=== PATIENT | female | born 2005 | race Caucasian/White ===

== ENCOUNTER 2024-02-22 21:26 | Emergency (ER) | payer BC, MEDICAID ==
[~2024-02-22] VITALS: Ht 154.9 cm; Wt 86.2 kg
[2024-02-22] MEDS: IV NORMAL SALINE 500 ML BAG IV ONE (21:54)
[2024-02-22] MEDS ORDERED: ONDANSETRON 4 MG/2 ML VIAL ONE (21:59)
[2024-02-22 22:01] LABS: BASOPHILS # (AUTO) 0.1 K/UL (0.0-0.2); BASOPHILS % (AUTO) 0.6 % (0.0-2.0); EOSINOPHILS # (AUTO) 0.2 K/uL (0.0-0.7); EOSINOPHILS % (AUTO) 1.8 % (0.0-7.0); HEMOGLOBIN 14.5 g/dL (10.9-14.3); LYMPHOCYTES # (AUTO) 3.9 K/uL (0.8-4.8); LYMPHOCYTES % (AUTO) 41.4 % (20.5-74.5); MEAN CORPUSCULAR HEMOGLOBIN 31.5 uug (24.7-32.8); MEAN CORPUSCULAR HGB CONC 34 g/dL (32.3-35.6); MEAN CORPUSCULAR VOLUME 93.2 fL (75.5-95.3); MONOCYTES % (AUTO) 10.1 % (0-11); NEUTROPHILS # (AUTO) 4.4 K/uL (1.8-8.9); NEUTROPHILS % (AUTO) 46.1 % (31.5-64.5); PLATELET COUNT (AUTO) 328 K/uL (179-408); RED BLOOD CELL COUNT(AUTO) 4.61 MIL/uL (3.63-4.92); RED CELL DISTRIBUTION WIDTH 13.2 % (12.3-17.7); WHITE BLOOD COUNT (AUTO) 9.5 K/uL (3.8-11.8)
[2024-02-22 22:03] LABS: DIFFERENTIAL COMMENT 1
[2024-02-22] MEDS: ONDANSETRON 4 MG/2 ML VIAL IV ONE (22:04)
[2024-02-22 22:15] LABS: ETHANOL 281 MG/DL (0-10)
[2024-02-22 22:19] LABS: CALCIUM 9.2 mg/dL (8.5-10.1); CARBON DIOXIDE 20 mmol/L (21-32); CHLORIDE 110 mmol/L (98-107); CREATININE 0.6 mg/dL (0.6-1.3); GLUCOSE 108 mg/dL (74-106); SODIUM SERUM 148 mmol/L (136-145); UREA NITROGEN, BLOOD 6 mg/dL (7-18)
[2024-02-22 22:25] LABS: ALANINE AMINOTRANSFERASE 132 U/L (14-59); ALBUMIN 3.8 g/dL (3.4-5.0); ALKALINE PHOSPHATASE 108 U/L (50-136); ASPARTATE AMINOTRANSFERASE 90 U/L (15-37); BILIRUBIN,DIRECT 0.2 mg/dL (0.0-0.2); BILIRUBIN,TOTAL 0.3 mg/dL (0.2-1.0); TOTAL PROTEIN, SERUM 8.2 g/dL (6.4-8.2)
[2024-02-22 22:28] LABS: ACETAMINOPHEN < 2.0 ug/mL (10-30)
[2024-02-22] MEDS: POTASSIUM CHLORIDE 50 ML IV SCH (22:35)
[2024-02-22 22:39] LABS: LACTIC ACID 3.2 mmol/L (0.4-2.0)
[2024-02-22] MEDS ORDERED: POTASSIUM CHLORIDE 100 ML ONE (22:42)
[2024-02-22 23:33] LABS: *BILIRUBIN,URIN NEGATIVE (NEGATIVE); *CLARITY,URINE CLEAR (CLEAR); *COLOR,URINE YELLOW (YELLOW); *KETONES,URINE 1+ (NEGATIVE); *PROTEIN,URINE 1+ (NEGATIVE); *UROBILINOGEN,URINE 0.2 E.U./dl (NORMAL); LEUKOCYTE ESTERASE ,URINE 3+ (NEGATIVE); NITRITE, URINE POSITIVE (NEGATIVE); UGLUCOSE NEGATIVE (NEGATIVE)
[2024-02-22 23:35] LABS: *BLOOD, URINE TRACE (NEGATIVE)
[2024-02-22 23:48] LABS: *AMPHETAMINE, URINE NEGATIVE (NEGATIVE); *BARBITURATE, URINE NEGATIVE (NEGATIVE); *BENZODIAZEPINE, URINE NEGATIVE (NEGATIVE); *CANNABINOID, URINE POSITIVE (NEGATIVE); *COCCAINE, URINE NEGATIVE (NEGATIVE); *OPIATE, URINE NEGATIVE (NEGATIVE); *PHENCYCLIDINE SCREEN,URINE NEGATIVE (NEGATIVE); FENTANYL, URINE NEGATIVE (NEGATIVE)
[2024-02-22 23:50] LABS: BACTERIA,URINE MODERATE /HPF (NONE SEEN); SQUAMOUS EPITHELIAL CELL,UR MODERATE /HPF (NONE SEEN)
[2024-02-22 23:51] LABS: MUCUS,URINE FEW /LPF (0-FEW)
[2024-02-22 23:52] LABS: *URINE HCG, QUAL NEGATIVE (NEGATIVE)
[2024-02-23] MEDS ORDERED: ONDA4TAB5 PO (00:30)
[2024-02-23] MEDS: IV NORMAL SALINE 500 ML BAG IV ONE (01:15)
[2024-02-23] MEDS: POTASSIUM CHLORIDE 50 ML IV SCH (01:45)
[2024-02-23] MEDS ORDERED: POTASSIUM CHLORIDE 50 ML ONE (01:46)
[2024-02-23 04:25] VITALS: BP 113/81; TEMP 97.8; O2SAT 100
== END 2024-02-23 04:25 | disposition home or self-care (01) ==
LOC: ER 21:26
DX: F10.129 Alcohol abuse with intoxication, unspecified (principal); E87.6 Hypokalemia; R10.2 Pelvic and perineal pain; Z79.899 Other long term (current) drug therapy; Y90.0 Blood alcohol level of less than 20 mg/100 ml
CPT/HCPCS: 36415; 83605; 84703; 85025; A4606; A4663; G0480; J2405; J3480; J7040